=== PATIENT | female | born 1985 | race Caucasian/White ===

== ENCOUNTER 2018-06-09 14:03 | Emergency (ER) | payer OTHER ==
[~2018-06-09] VITALS: Ht 167.6 cm; Wt 77.0 kg
[2018-06-09] MEDS ORDERED: CYCL-331 PO (14:57)
--- NOTE | 2018-06-09 14:57 | PHYS DOC ---
Past History Past Medical History: Other Past Surgical History: Tubal ligation Alcohol Use: None Drug Use: Marijuana Adult General Chief Complaint Chief Complaint: SHOULDER pain HPI HPI 33-year-old female with back pain for the last 4 years comes in with acute on chronic back pain without any recent trauma. She reports multiple x-rays were reportedly normal. She was going to her primary care physician today when she found out that he was out of town but her pain was bad enough that she felt she needed help in the emergency department with her pain. She has a sharp moderate pain that is nonradiating. Similar to the previous 4 years of her pain. No new or changing symptomatology to suggest a different etiology. Review of systems is negative for chest pain shortness of breath recent car accidents. She denies neck pain headache abdominal pain fevers chills hematuria or being . All other review of systems is negative unless otherwise noted in history of present illness. ED course: 33-year-old female with acute on chronic muscular thoracic back pain. On examination she has tenderness to palpation along the trapezius muscle. Nontender cervical thoracic or lumbar spine. No step-offs abrasions lacerations or ecchymosis. No tenderness of the shoulder. No deformities. No pain with passive range of motion of the left shoulder. Normal neurovascular status of the upper extremities. Otherwise the remainder the exam is unremarkable. Intramuscular morphine given here in the emergency room department. Muscle relaxants given upon discharge to follow up with her pcp a few days. The patient has been examined and was not found to have an emergency medical condition. The patient was then discharged home in stable condition to follow up with their primary care physician over the next 2-3 days. They were to return if their symptoms worsened or if they were concerned for any reason. They were also instructed to return to the emergency department if they were unable to get the recommended and appropriate follow-up. [id number] discharge instructions and return precautions were given. Patient's questions were answered to their satisfaction. Patient is comfortable with plan. Allergies Allergies Allergies Coded Allergies Type Severity Reaction Last Updated Verified No Known Drug Allergies 06/09/18 No Physical Exam Physical Exam Constitutional: Well developed, well nourished, no acute distress, non-toxic appearance. [] HENT: Normocephalic, atraumatic, bilateral external ears normal, oropharynx moist, no oral exudates, nose normal. [] Eyes: PERRLA, EOMI, conjunctiva normal, no discharge. [] Neck: Normal range of motion, no tenderness, supple, no stridor. [] Cardiovascular:Heart rate regular rhythm, no murmur [] Lungs & Thorax: Bilateral breath sounds clear to auscultation [] Abdomen: Bowel sounds normal, soft, no tenderness, no masses, no pulsatile masses. [] Skin: Warm, dry, no erythema, no rash. [] Back: see above, no CVA tenderness. [] Extremities: No tenderness, no cyanosis, no clubbing, ROM intact, no edema. [] Neurologic: Alert and oriented X 3, normal motor function, normal sensory function, no focal deficits noted. [] Psychologic: Affect normal, judgement normal, mood normal. [] Current Patient Data Vital Signs Vital Signs Date Time Temp Pulse Resp B/P (MAP) Pulse Ox O2 Delivery O2 Flow Rate FiO2 06/09/18 14:18 98.1 86 18 97 Room Air EKG EKG [] Radiology/Procedures Radiology/Procedures [] Course & Med Decision Making Course & Med Decision Making Pertinent Labs and Imaging studies reviewed. (See chart for details) [] Dragon Disclaimer Dragon Disclaimer This electronic medical record was generated, in whole or in part, using a voice recognition dictation system. Departure Departure: Impression: Primary Impression: Musculoskeletal back pain Disposition: HOME, SELF-CARE Condition: STABLE Referrals: CASPER VALENTIN MD (PCP) Patient Instructions: Back Exercises, Back Injury Prevention, Back Pain, Adult Additional Instructions: Thank you for allowing us to participate in your care today. Return to the emergency department you have any new or worsening symptoms, or if you are concerned for any reason. Return to emergency department if you have any new or concerning symptoms including but not limited to fever, chills, nausea, vomiting, intractable pain, any new rashes, chest pain, shortness of air , uncontrolled bleeding, difficulty breathing, and/or vision loss. Follow up with your primary care physician within 3 days. Call your Primary Doctor tomorrow and inform them of your visit today. If you do not have a primary care provider we are happy to provide you with a list of our primary care providers contact information. This condition should be evaluated by your primary care physician and any recommended consulting services for continued management within 2-3 days after discharge. If at any time, you are having difficulty getting into your primary care doctor or a specialist, return to the emergency department. You may have been prescribed medication or given medication in the emergency department that can change in your level of thinking and ability to operate machinery. Many prescribed medications can cause this. Some commonly prescribed medications include hydrocodone, ativan, and benadryl. Be sure to check with your pharmacist and ask if the medications you've prescribed can affect your level of consciousness. I recommend not operating heavy machinery or driving while on medication such as these. Scripts Cyclobenzaprine Hcl (CYCLOBENZAPRINE HCL) 10 Mg Tablet 1 TAB PO TID, #21 TAB 0 Refills Caution: This medication can cause you to be drowsy. Do not drive or operate heavy machinery on this medication. Prov: REMEDIOS WHITE MD 06/09/18 REMEDIOS WHITE MD Jun 09, 2018 14:57
[2018-06-09] MEDS ORDERED: MORPHINE SULFATE 4 MG/ML DISP.SYRIN. IM ONE (15:15)
[2018-06-09 15:27] VITALS: BP 99/70
== END 2018-06-09 15:30 | disposition home or self-care (01) ==
LOC: ER 14:03
DX: G89.29 Other chronic pain (principal); M54.89 Other dorsalgia; Z98.51 Tubal ligation status
CPT/HCPCS: 96372; 99283; J2270

== ENCOUNTER 2019-03-19 19:15 | Emergency (ER) | payer OTHER ==
[~2019-03-19] VITALS: Ht 167.6 cm; Wt 70.3 kg
[~2019-03-19 19:15] MED LIST: CYCL-331 PO
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
[2019-03-19] MEDS ORDERED: TETANUS AND DIPHTHERIA TOX/PF 0.5 ML VIAL. VAX IM ONE (19:30)
[2019-03-19] MEDS ORDERED: TETRACAINE 0.5% OPHTH SOLUTION 4ML BOTTLE. OU ONE (19:45)
[2019-03-19] MEDS ORDERED: FLUORESCEIN 1MG EYE STRIP. OU ONE (19:45)
[2019-03-19] MEDS ORDERED: KETOROLAC TROMETHAMINE 0.5% OPHTH SOLUTION 3ML BOTTLE. OU ONE (19:45)
[2019-03-19] MEDS ORDERED: ERYTHROMYCIN 0.5% OPHTH OINTMENT 1GM TUBE. OU ONE (19:45)
[2019-03-19] MEDS ORDERED: HYDR-1179 PO (19:53)
[2019-03-19] MEDS ORDERED: DIPHTH,PERTUSS(ACELL),TET TOX 0.5 ML DISP.SYRIN. VAX IM ONE (20:00)
[2019-03-19] MEDS ORDERED: HYDROcodon/IBUPROFEN 7.5/200MG 1 TAB TABLET PO ONE ×2 (20:00→20:15)
[2019-03-19 20:10] VITALS: BP 137/80
[2019-03-19] MEDS ORDERED: CYCLOPENTOLATE 1% OPTH SOLUTION 2ML BOTTLE. OU ONE (20:15)
== END 2019-03-19 20:15 | disposition home or self-care (01) ==
LOC: ER 19:15
DX: H10.9 Unspecified conjunctivitis (principal); H52.12 Myopia, left eye
CPT/HCPCS: 90471; 90715; 99283-25

== ENCOUNTER 2019-03-29 18:48 | Emergency (ER) | payer OTHER ==
[~2019-03-29] VITALS: Ht 165.1 cm; Wt 75.3 kg
[~2019-03-29 18:48] MED LIST changes: +HYDR-1179 PO
--- NOTE | 2019-03-29 19:09 | PHYS DOC ---
Past History Past Medical History: Anxiety, Depression, Other Past Surgical History: Tubal ligation, Other Additional Smoking Information: 11/24 PACK Alcohol Use: None Drug Use: Marijuana Adult General Chief Complaint Chief Complaint: DIFFICULTY SWALLOWING HPI HPI Patient is a 33-year-old female who has difficulty swallowing at the end of the work day since starting a new job 3-4 weeks ago. 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 Symptoms became worse this evening as she made 120 phone calls today. She does not have any difficulty keeping food or fluids down. She reports it is more a difficulty of initiating the swallow process towards the end of the workday. Her mother was recently diagnosed with influenza A, last week. Patient notes that she has a mild sore throat. Denies any fever. Symptoms do get better by the start of the next work day.[] Review of Systems Review of Systems Constitutional: Denies fever or chills [] Eyes: Denies change in visual acuity, redness, or eye pain [] HENT: Denies nasal congestion see history of present illness[] Respiratory: Denies cough or shortness of breath [] Cardiovascular: No chest pain or palpitations[] GI: Denies abdominal pain, nausea, vomiting, bloody stools or diarrhea [] : Denies dysuria or hematuria [] Musculoskeletal: Denies back pain or joint pain [] Integument: Denies rash or skin lesions [] Neurologic: Denies headache, focal weakness or sensory changes [] Endocrine: Denies polyuria or polydipsia [] All other systems were reviewed and found to be within normal limits, except as documented in this note. Family History Family History Denies family history of MS Allergies Allergies Allergies Coded Allergies Type Severity Reaction Last Updated Verified No Known Drug Allergies 06/09/18 No Physical Exam Physical Exam Constitutional: Well developed, well nourished, no acute distress, non-toxic appearance. [] HENT: Normocephalic, atraumatic, bilateral external ears normal, oropharynx moist, no oral exudates, nose normal. [] Eyes: PERRLA, EOMI, conjunctiva normal, no discharge. [] Neck: Normal range of motion, no tenderness, supple, no stridor. Normal thyroid, normal neck/throat movement with the swallowing process.[] Cardiovascular:Heart rate regular rhythm, no murmur [] Lungs & Thorax: Bilateral breath sounds clear to auscultation [] Abdomen: Not examined. [] Skin: Warm, dry, no erythema, no rash. [] Back: No tenderness, no CVA tenderness. [] Extremities: No tenderness, no cyanosis, no clubbing, ROM intact, no edema. [] Neurologic: Alert and oriented X 3, normal motor function, normal sensory function, no focal deficits noted. [] Psychologic: Affect normal, judgement normal, mood normal. [] Current Patient Data Vital Signs Vital Signs Date Time Temp Pulse Resp B/P (MAP) Pulse Ox O2 Delivery O2 Flow Rate FiO2 03/29/19 18:55 97.3 83 20 100 Room Air EKG EKG [] Radiology/Procedures Radiology/Procedures [] Course & Med Decision Making Course & Med Decision Making Pertinent Labs and Imaging studies reviewed. (See chart for details) ED course: Patient arrived, was placed in bed, and tolerated exam well. She was able to swallow water from a water bottle without any difficulty. Medical decision making: This may be related to neurologic issue such as MS. This does not appear to be an acute life-threatening issue since it has been going on for the past 3 weeks. There is no evidence of an esophageal blockage. No evidence of airway compromise. Patient will need further evaluation, possibly neurology and/or MRI evaluation. There is no evidence of an acute infectious etiology at this time.[] Dragon Disclaimer Dragon Disclaimer This electronic medical record was generated, in whole or in part, using a voice recognition dictation system. Departure Departure: Impression: Primary Impression: Difficulty swallowing Disposition: HOME, SELF-CARE Condition: IMPROVED Referrals: CASPER VALENTIN MD (PCP) Follow-up with your doctor in 2 days Patient Instructions: Dysphagia Additional Instructions: Follow-up with your regular doctor in 2 days. Drink plenty of fluids during your work shifts. Return to the ER if worsening difficulty swallowing or any other concerns. Problem Qualifiers Primary Impression: Difficulty swallowing Dysphagia type: unspecified Qualified Codes: R13.10 - Dysphagia, unspecified CHANCE SEGUNDO DO March 29, 2019 19:09
[2019-03-29 19:46] LABS: INFLUENZA A PATIENT NEGATIVE (NEGATIVE); INFLUENZA B PATIENT NEGATIVE (NEGATIVE)
[2019-03-29] MEDS ORDERED: KETOROLAC 15 MG/ML VIAL. IM ONE (20:15)
[2019-03-29 20:22] VITALS: BP 114/81
== END 2019-03-29 20:23 | disposition home or self-care (01) ==
LOC: ER 18:48
DX: R13.10 Dysphagia, unspecified (principal); J02.9 Acute pharyngitis, unspecified; F41.9 Anxiety disorder, unspecified; F32.9 Major depressive disorder, single episode, unspecified; F17.200 Nicotine dependence, unspecified, uncomplicated
CPT/HCPCS: 87070; 87804; 87880; 96372; 99284; J1885

== ENCOUNTER 2019-05-21 18:56 | Emergency (ER) | payer OTHER ==
[~2019-05-21] VITALS: Ht 165.1 cm; Wt 73.3 kg
[2019-05-21 19:00] VITALS: BP 150/89
[2019-05-21] MEDS ORDERED: PHENAZOPYRIDINE 200 MG TABLET. PO ONE (19:15)
[2019-05-21] MEDS ORDERED: IBUPROFEN 600 MG TABLET. PO ONE ×2 (19:15→19:17)
[2019-05-21] MEDS ORDERED: PHENAZOPYRIDINE 200 MG TABLET. ONE (19:17)
[2019-05-21] MEDS ORDERED: CEPH-264 PO (19:22)
[2019-05-21] MEDS ORDERED: PHEN-318 PO (19:22)
--- NOTE | 2019-05-21 19:23 | PHYS DOC ---
Past History Past Medical History: Anxiety, Depression, Other Past Surgical History: Tubal ligation, Other Smoking: Cigarettes Alcohol Use: None Drug Use: Marijuana Adult General Chief Complaint Chief Complaint: PAIN ON URINATION HPI HPI Patient is a 33-year-old female presents with dysuria and frequency that started approximately an hour prior to arrival. This is like her previous urinary tract infections. She has taken no medication to help with the discomfort. Reports the discomfort as a burning sensation with urination. No radiation to the back or flanks. No fever. No nausea or vomiting. No vaginal bleeding or discharge. Nothing makes the symptoms better or worse.[] Review of Systems Review of Systems Constitutional: Denies fever or chills [] Eyes: Denies change in visual acuity, redness, or eye pain [] HENT: Denies nasal congestion or sore throat [] Respiratory: Denies cough or shortness of breath [] Cardiovascular: No chest pain or palpitations[] GI: Denies abdominal pain, nausea, vomiting, bloody stools or diarrhea [] : See history of present illness[] Musculoskeletal: Denies back pain or joint pain [] Integument: Denies rash or skin lesions [] Neurologic: Denies headache, focal weakness or sensory changes [] Endocrine: Denies polyuria or polydipsia [] All other systems were reviewed and found to be within normal limits, except as documented in this note. Allergies Allergies Allergies Coded Allergies Type Severity Reaction Last Updated Verified No Known Drug Allergies 06/09/18 No Physical Exam Physical Exam Constitutional: Well developed, well nourished, no acute distress, non-toxic appearance. [] HENT: Normocephalic, atraumatic, bilateral external ears normal, oropharynx moist, no oral exudates, nose normal. [] Eyes: PERRLA, EOMI, conjunctiva normal, no discharge. [] Neck: Normal range of motion, no tenderness, supple, no stridor. [] Cardiovascular:Heart rate regular rhythm, no murmur [] Lungs & Thorax: Bilateral breath sounds clear to auscultation [] Abdomen: Bowel sounds normal, soft, no tenderness, no masses, no pulsatile masses. [] Skin: Warm, dry, no erythema, no rash. [] Back: No tenderness, no CVA tenderness. [] Extremities: No tenderness, no cyanosis, no clubbing, ROM intact, no edema. [] Neurologic: Alert and oriented X 3, normal motor function, normal sensory function, no focal deficits noted. [] Psychologic: Affect normal, judgement normal, mood normal. [] EKG EKG [] Radiology/Procedures Radiology/Procedures [] Course & Med Decision Making Course & Med Decision Making Pertinent Labs and Imaging studies reviewed. (See chart for details) Medical decision making: Patient appears to have a urinary tract infection given the moderate leukocyte esterase in her urine and previous symptomatology. Have started treatment with pain medication in the emergency department. Will start her on antibiotics. She has not been on any recent antibiotic therapy. There is no evidence of pyelonephritis nor systemic toxicity. No evidence of appendicitis given no right lower quadrant tenderness.[] Dragon Disclaimer Dragon Disclaimer This electronic medical record was generated, in whole or in part, using a voice recognition dictation system. Departure Departure: Impression: Primary Impression: Urinary tract infection Disposition: HOME, SELF-CARE Condition: IMPROVED Referrals: CASPER VALENTIN MD (PCP) Follow-up in 2 days Patient Instructions: Urinary Tract Infection Additional Instructions: Drink plenty of fluids. Take the medication as prescribed. Follow-up with your regular doctor in 2 days. Return to the ER if worsening discomfort, fever of more than 101, or any other concerns. Scripts Phenazopyridine Hcl (PYRIDIUM) 200 Mg Tablet 200 MG PO TID for dysuria for 2 Days, #6 TAB Prov: CHANCE SEGUNDO DO 05/21/19 Cephalexin (KEFLEX) 500 Mg Capsule 500 MG PO TID for UTI for 10 Days, #30 CAP Prov: CHANCE SEGUNDO DO 05/21/19 Problem Qualifiers Primary Impression: Urinary tract infection Urinary tract infection type: site unspecified Hematuria presence: with hematuria Qualified Codes: N39.0 - Urinary tract infection, site not specified; R31.9 - Hematuria, unspecified CHANCE SEGUNDO DO May 21, 2019 19:23
== END 2019-05-21 19:30 | disposition home or self-care (01) ==
LOC: ER 18:56
DX: N39.0 Urinary tract infection, site not specified (principal); R31.9 Hematuria, unspecified; F41.9 Anxiety disorder, unspecified; F32.9 Major depressive disorder, single episode, unspecified; F17.210 Nicotine dependence, cigarettes, uncomplicated; Z87.440 Personal history of urinary (tract) infections; Z98.51 Tubal ligation status
CPT/HCPCS: 81025; 99283

== ENCOUNTER → 2019-06-21 | Outpatient (CLI) | payer OTHER ==
[~2019-06-21] MED LIST changes: +CEPH-264 PO; +PHEN-318 PO
--- NOTE | 2019-06-21 21:10 | RAD ---
Exam: Cervical spine 3 views lumbar spine 2 views INDICATION: Neck and lower back pain TECHNIQUE: Frontal, lateral and odontoid views of the cervical spine. Frontal and lateral views of the lumbar spine with spot magnification view of the lumbosacral junction. Comparisons: None FINDINGS: Cervical spine: Straightening of the cervical spine which may positional. Vertebral body heights are well-maintained. No significant spondylotic change identified in the cervical spine. Paravertebral soft tissues are unremarkable. Lumbar spine: Mild straightening of the lumbar lordosis. Vertebral body heights are well-maintained. Mild bilateral facet arthropathy greatest at L4-L5 and L5-S1. Visualized paraspinal soft tissues are unremarkable. Tubeligation clips noted. IMPRESSION: 1. Straightening of the cervical spine which may be positional. No significant spondylotic change. 2. Mild spondylotic changes in the lower lumbar spine. Electronically signed by: Jimbo Booth MD (06/21/2019 9:06 PM) [facility]
== END | disposition home or self-care (01) ==
LOC: RAD 20:04
PROVIDERS: ATTEND Family Medicine
DX: M47.816 Spondylosis without myelopathy or radiculopathy, lumbar region (principal); M40.46 Postural lordosis, lumbar region; M12.88 Other specific arthropathies, not elsewhere classified, other specified site
CPT/HCPCS: 72040; 72100

== ENCOUNTER → 2019-06-29 | Outpatient (CLI) | payer OTHER ==
--- NOTE | 2019-06-29 15:42 | RAD ---
EXAM: AP pelvis, AP and lateral views of the right hip DATE: 06/29/2019 12:00 AM INDICATION: Chronic right hip pain COMPARISON: No Prior FINDINGS/ IMPRESSION: No evidence of acute fracture or dislocation. Joint spaces are preserved without significant degenerative/proliferative change. Sclerotic focus within the left pelvis likely bone island. Clips are seen within the pelvis. Electronically signed by: Robert Pineda MD (06/29/2019 3:39 PM) [id number]
== END | disposition home or self-care (01) ==
LOC: DXRAD 15:23
PROVIDERS: ATTEND Family Medicine
DX: M25.551 Pain in right hip (principal); G89.29 Other chronic pain
CPT/HCPCS: 73502

== ENCOUNTER 2021-02-26 10:05 | Emergency (ER) | payer OTHER ==
[~2021-02-26] VITALS: Ht 165.1 cm; Wt 73.3 kg
[2021-02-26 10:16] VITALS: BP 103/66
--- NOTE | 2021-02-26 10:25 | PHYS DOC ---
Past History Past Medical History: Anxiety, Depression, UTI, Other Past Surgical History: Tubal ligation, Other Smoking: Cigarettes Alcohol Use: None Drug Use: Marijuana Adult General Chief Complaint Chief Complaint: FINGER INJURY HPI HPI Patient is a 35-year-old female presenting for left index finger problem. Onset was approximately 3 to 4 days ago, had artificial acrylic nails placed and subsequently removed and developed a cuticle infection. Cuticle infection is on knee lateral portion of nailbed matrix with increased swelling pain and fluctuant at area distal to DIP. She has had no fever, no changes in motor or sensory function, no neurologic deficits but admits "I can feel it pulsating". Patient attempted to incise and drain area without significant relief with further development of green pus material on lateral bed of matrix prompting her to come in for evaluation. She has no history of MRSA infection Review of Systems Review of Systems Fourteen body systems of review of systems have been reviewed. See HPI for pertinent positives and negative responses, other gross all other systems are negative, non-pertinent or non-contributory Allergies Allergies Allergies Coded Allergies Type Severity Reaction Last Updated Verified No Known Drug Allergies 06/09/18 No Physical Exam Physical Exam Constitutional: Well developed, well nourished, no acute distress, non-toxic appearance. HENT: Normocephalic, atraumatic, bilateral external ears normal, oropharynx moist, no oral exudates, nose normal. Eyes: PERRLA, EOMI, conjunctiva normal, no discharge. Neck: Normal range of motion, no tenderness, supple, no stridor. Cardiovascular: Heart rate regular per monitor Lungs & Thorax: No respiratory distress or accessory muscle use, bilateral chest rise Abdomen: Abdomen soft, non-tender, bowel sounds present in all quadrants, no guarding or rebound, nonacute abdomen. Skin: Warm, dry, no erythema, no rash. Back: No tenderness, no CVA tenderness. Extremities: No cyanosis, no clubbing, ROM intact, edema and pain to distal tip of left index finger with small yellow/green-colored pus present on lateral nailbed matrix, radial pulses intact bilaterally, cap refill less than 3 seconds Neurologic: Alert and oriented X 3, normal motor & sensory function, no focal deficits noted. Psychologic: Anxious affect and mood Current Patient Data Vital Signs Vital Signs Date Time Temp Pulse Resp B/P (MAP) Pulse Ox O2 Delivery O2 Flow Rate FiO2 02/26/21 10:16 97.9 105 16 103/66 (78) 98 Room Air EKG EKG [] Radiology/Procedures Radiology/Procedures [] Heart Score C/O Chest Pain: No HEART Score for Chest Pain: HEART Score for Chest Pain Response (Comments) Value ECG Normal 0 Age < 45 0 Risk Factors No Risk Factors 0 Total 0 Risk Factors: Risk Factors: DM, Current or recent (<one month) smoker, HTN, HLP, family history of CAD, obesity. Risk Scores: Risk Factors: DM, Current or recent (<one month) smoker, HTN, HLP, family history of CAD, obesity. Course & Med Decision Making Course & Med Decision Making Hemodynamically stable, afebrile patient with HPI and physical examination consistent with cuticle infection of left distal index finger Joint decision was made to pursue incision and drainage, this was performed while in ER without any observed nor reported complications with significant amount of pus and serosanguineous fluid expelled. 500 mg Keflex started as patient has no history of MRSA Subsequent prescription for Keflex given prior to ER departure. Patient has PCP, was advised to follow-up within upcoming 3 to 5 days for repeat evaluation in outpatient setting to ensure continued symptomatic resolution Strict return precautions discussed with good understanding by patient, all questions and concerns addressed prior to ER departure Dragon Disclaimer Dragon Disclaimer This electronic medical record was generated, in whole or in part, using a voice recognition dictation system. Incision and Drainage Incision and Drainage : Site: Distal aspect of left lateral index finger Blade Size: 11 I & D Procedure: sterile dressing applied Progress Verbal consent obtained after risks and benefits reviewed. A total of 3 cc 1% lidocaine without epinephrine was utilized to perform a digital block with 1.5 mils 1% lidocaine administered on each side of left index finger. An 11 blade was used to make x1 incision to lateral portion of left index finger near base of focal pustular collection without involvement/interference of nailbed matrix. Significant pustular material and subsequent serosanguineous fluid was relieved and expressed out. Patient tolerated procedure well without any observed nor reported complications Departure Departure: Impression: Primary Impression: Infected cuticle Disposition: 01 DC HOME SELF CARE/HOMELESS Condition: STABLE Referrals: CASPER VALENTIN MD (PCP) Patient Instructions: Paronychia Additional Instructions: As discussed prior to your departure, you were diagnosed with an infection of the lateral portion of your left index finger. Joint decision was made to incise and drain this with significant amount of pus expelled. You will require antibiotics for this, you were given x1 dose of Keflex while in ER and a subsequent prescription was written for you. Please fill these and take as described to its entirety. Please ensure you continue supportive care practices discussed and also follow instructions attached to this packet of information. Continue warm soaks daily. It is vital you follow-up with your primary care physician for repeat evaluation. If any concerning signs or symptoms present prior to outpatient follow-up please do not hesitate to come back for repeat evaluation. It was a pleasure to take care of you and I wish you the best going Scripts Cephalexin (CEPHALEXIN) 500 Mg Tablet 2 TAB PO TID for INFECTION for 7 Days, #42 TAB Prov: JERRICA LARSON DO 02/26/21 JERRICA LARSON DO Feb 26, 2021 10:25
[2021-02-26] MEDS ORDERED: LIDOCAINE 1% Multi-Dose 20 ML VIAL. ONE (10:32)
[2021-02-26] MEDS ORDERED: CEPHALEXIN 250 MG CAPSULE PO ONE (11:00)
[2021-02-26] MEDS ORDERED: CEPH500T PO (11:00)
== END 2021-02-26 11:07 | disposition home or self-care (01) ==
LOC: ER 10:05
DX: L03.012 Cellulitis of left finger (principal); F17.210 Nicotine dependence, cigarettes, uncomplicated
CPT/HCPCS: 26010; 99283

== ENCOUNTER 2021-04-04 22:29 | Emergency (ER) | payer OTHER ==
[~2021-04-04] VITALS: Ht 165.1 cm; Wt 71.2 kg
[~2021-04-04 22:29] MED LIST changes: +CEPH500T PO
[2021-04-04 22:40] VITALS: BP 144/106
[2021-04-04] MEDS ORDERED: ONDANSETRON PF 4 MG/2 ML VIAL. IVP ONE (23:15)
[2021-04-04] MEDS ORDERED: IV RINGERS SOLUTION,LACTATED 1,000 ML IV ONE (23:15)
[2021-04-04 23:25] LABS: CALCIUM 8.9 mg/dL (8.5-10.1); CREATININE 0.9 mg/dL (0.6-1.0); GFR 70.5; HEMATOCRIT 40.5 % (36.0-47.0); HEMOGLOBIN 13.9 g/dL (12.0-15.5); POTASSIUM 3.1 mmol/L (3.5-5.1); RED BLOOD COUNT 4.23 x10^6/uL (3.50-5.40); RED CELL DISTRIBUTION WIDTH 12.7 % (11.5-14.5); WHITE BLOOD COUNT 12.7 x10^3/uL (4.0-11.0)
[2021-04-04 23:30] LABS: ALBUMIN 4.4 g/dL (3.4-5.0); ALBUMIN/GLOBULIN RATIO 1.4 (1.0-1.7); TOTAL BILIRUBIN 0.4 mg/dL (0.2-1.0); TOTAL PROTEIN 7.6 g/dL (6.4-8.2)
[2021-04-04 23:43] LABS: BILIRUBIN,URINE NEG (NEG); CLARITY,URINE CLEAR; COLOR,URINE YELLOW; GLUCOSE,URINE NEG (NEG)
[2021-04-04 23:44] LABS: AMORPHOUS SEDIMENT,UR PRESENT /HPF; BACTERIA,URINE FEW /HPF (0-FEW); BARBITURATES NEG (NEG); BENZODIAZEPINES POS (NEG); CANNABINOIDS POS (NEG); COCAINE POS (NEG); METHADONE NEG (NEG); NITRITE,URINE NEG (NEG); OPIATES NEG (NEG); PHENCYCLIDINE NEG (NEG); RBC,URINE 0 /HPF (0-2); SQUAMOUS EPITHELIAL CELL,UR FEW /LPF; UROBILINOGEN,URINE 0.2 mg/dL (0.2 mg/dL); WBC,URINE 0 /HPF (0-4)
[2021-04-04 23:55] LABS: AMPHETAMINE/METHAMPHETAMINE NEG (NEG)
--- NOTE | 2021-04-05 00:11 | PHYS DOC ---
Past History Past Medical History: No Pertinent History Past Surgical History: Other Smoking: Cigarettes Alcohol Use: None Drug Use: Marijuana Adult General Chief Complaint Chief Complaint: OVERDOSE HPI HPI Patient is a 35-year-old female who presents with family after ingesting an unknown pill. Patient and family state that she was given a pill that was told that was Percocet but they believe it was a Percocet laced with fentanyl. P atient states that she also took some Xanax as well as cocaine earlier. Daughter brought her in because she was acting funny and was worried that she was going to overdose. Patient denies headache, changes in vision, numbness/weakness/tingling, chest pain, shortness of breath, abdominal pain, dysuria, hematuria, nausea, vomiting. Both patient and daughter deny any syncope or unresponsiveness. Denies any other drugs outside of the pill given to her which was unknown, cocaine, marijuana and Xanax. Review of Systems Review of Systems Review of systems otherwise unremarkable except noted in HPI Current Medications Current Medications Current Medications Medications (Trade) Dose Ordered Sig/Jenny Start Time Stop Time Status Last Admin Dose Admin Lactated Ringer's 1,000 ml @ 1,000 mls/hr 1X ONCE 04/04/21 23:15 04/05/21 00:14 04/04/21 23:15 1,000 MLS/HR Ondansetron HCl (Zofran) 4 mg 1X ONCE 04/04/21 23:15 04/04/21 23:18 DC 04/04/21 23:15 4 MG Allergies Allergies Allergies Coded Allergies Type Severity Reaction Last Updated Verified No Known Drug Allergies 06/09/18 No Physical Exam Physical Exam Constitutional: Well developed, well nourished, no acute distress, non-toxic appearance. [] HENT: Normocephalic, atraumatic, bilateral external ears normal, oropharynx m oist, no oral exudates, nose normal. [] Eyes: PERRLA, EOMI, conjunctiva normal, no discharge. [] Neck: Normal range of motion, no tenderness, supple, no stridor. [] Cardiovascular:Heart rate regular rhythm, no murmur [] Lungs & Thorax: Bilateral breath sounds clear to auscultation [] Abdomen: soft, no tenderness, no masses, no pulsatile masses. [] Skin: Warm, dry, no erythema, no rash. [] Back: No tenderness, no CVA tenderness. [] Extremities: No tenderness, no cyanosis, no clubbing, ROM intact, no edema. [] Neurologic: Alert and oriented X 3, no focal deficits noted. [] Psychologic: Affect normal, judgement normal, mood normal. [] Current Patient Data Vital Signs Vital Signs Date Time Temp Pulse Resp B/P (MAP) Pulse Ox O2 Delivery O2 Flow Rate FiO2 04/04/21 22:40 98.2 95 16 144/106 (119) 95 Room Air Lab Results Laboratory Tests Test 04/04/21 22:45 04/04/21 22:48 White Blood Count 12.7 x10^3/uL (4.0-11.0) H Red Blood Count 4.23 x10^6/uL (3.50-5.40) Hemoglobin 13.9 g/dL (12.0-15.5) Hematocrit 40.5 % (36.0-47.0) Mean Corpuscular Volume 96 fL (79-100) Mean Corpuscular Hemoglobin 33 pg (25-35) Mean Corpuscular Hemoglobin Concent 34 g/dL (31-37) Red Cell Distribution Width 12.7 % (11.5-14.5) Platelet Count 256 x10^3/uL (140-400) Urine Collection Type U cath Urine Color Yellow Urine Clarity Clear Urine pH 5.5 Urine Specific Chunky 1.025 Urine Protein Neg (NEG-TRACE) Urine Glucose (UA) Neg mg/dL (NEG) Urine Ketones (Stick) Trace mg/dL (NEG) Urine Blood Neg (NEG) Urine Nitrite Neg (NEG) Urine Bilirubin Neg (NEG) Urine Urobilinogen Dipstick 0.2 mg/dL (0.2 mg/dL) Urine Leukocyte Esterase Neg (NEG) Urine RBC 0 /HPF (0-2) Urine WBC 0 /HPF (0-4) Urine Squamous Epithelial Cells Few /LPF Urine Transitional Epithelial Cells Occ /LPF Urine Renal Epithelial Cells Occ /LPF Urine Amorphous Sediment Present /HPF Urine Bacteria Few /HPF (0-FEW) Urine Mucus Slight /LPF Sodium Level 139 mmol/L (136-145) Potassium Level 3.1 mmol/L (3.5-5.1) L Chloride Level 101 mmol/L (98-107) Carbon Dioxide Level 27 mmol/L (21-32) Anion Gap 11 (6-14) Blood Urea Nitrogen 14 mg/dL (7-20) Creatinine 0.9 mg/dL (0.6-1.0) Estimated GFR (Cockcroft-Gault) 70.5 BUN/Creatinine Ratio 16 (6-20) Glucose Level 168 mg/dL (70-99) H Calcium Level 8.9 mg/dL (8.5-10.1) Total Bilirubin 0.4 mg/dL (0.2-1.0) Aspartate Amino Transferase (AST) 17 U/L (15-37) Alanine Aminotransferase (ALT) 21 U/L (14-59) Alkaline Phosphatase 63 U/L (46-116) Total Protein 7.6 g/dL (6.4-8.2) Albumin 4.4 g/dL (3.4-5.0) Albumin/Globulin Ratio 1.4 (1.0-1.7) Urine Opiates Screen Neg (NEG) Urine Methadone Screen Neg (NEG) Urine Barbiturates Neg (NEG) Urine Phencyclidine Screen Neg (NEG) Urine Amphetamine/Methamphetamine Neg (NEG) Urine Benzodiazepines Screen Pos (NEG) Urine Cocaine Screen Pos (NEG) Urine Cannabinoids Screen Pos (NEG) Urine Ethyl Alcohol Neg (NEG) Glucose (Fingerstick) 180 mg/dL (70-99) H EKG EKG [] Radiology/Procedures Radiology/Procedures [] Heart Score C/O Chest Pain: No Risk Factors: Risk Factors: DM, Current or recent (<one month) smoker, HTN, HLP, family history of CAD, obesity. Risk Scores: Risk Factors: DM, Current or recent (<one month) smoker, HTN, HLP, family history of CAD, obesity. Course & Med Decision Making Course & Med Decision Making Patient is a 35-year-old female who presents intoxicated after taking a pill that she was told was a Percocet but feels it was a Percocet laced with fentanyl. Patient also endorses marijuana, cocaine and Xanax use. Vital signs not concerning. Physical exam noted above. GCS of 15. Patient awake, alert and able to take p.o. without issue. Laboratory analysis not concerning. Urinalysis with some bacteria but patient denies any urinary symptoms. Toxicology matches patient's description. Patient able to ambulate without issue. Both patient, daughter and son-in-law felt safe to discharge home with patient. Advised to follow-up with primary care physician as soon as they can to update on ED visit. Advised to cease taking all medications that are not prescribed by a physician. Advised to come back to the ED with new or concerning symptoms. Family grateful, verbalized understanding and agreed with plan of discharge. Dragon Disclaimer Dragon Disclaimer This electronic medical record was generated, in whole or in part, using a voice recognition dictation system. Departure Departure: Disposition: 01 HOME / SELF CARE / HOMELESS Condition: GOOD Referrals: CASPER VALENTIN MD (PCP) Patient Instructions: Narcotic Overdose, Substance Abuse-Brief Additional Instructions: Please read all the attached information carefully. Please cease using any medicines and/or substances that are not prescribed to you by your primary care physician. Please come back to the emergency department immediately with new or concerning symptoms as discussed. RICHMOND BALL MD April 05, 2021 00:11
== END 2021-04-05 00:29 | disposition home or self-care (01) ==
LOC: ER 22:29
DX: T42.4X1A Poisoning by benzodiazepines, accidental (unintentional), initial encounter (principal); F12.10 Cannabis abuse, uncomplicated; F17.210 Nicotine dependence, cigarettes, uncomplicated; Y92.89 Other specified places as the place of occurrence of the external cause
CPT/HCPCS: 36415; 80053; 80307; 81001; 82947; 85027; 96361; 96374; 99283; J2405; J7120

== ENCOUNTER 2021-04-05 09:50 | Emergency (ER) | payer OTHER ==
[~2021-04-05] VITALS: Ht 165.1 cm; Wt 71.2 kg
[2021-04-05] MEDS ORDERED: KETOROLAC 15 MG/ML VIAL. IVP ONE (10:15)
[2021-04-05] MEDS ORDERED: ONDANSETRON PF 4 MG/2 ML VIAL. IVP ONE (10:15)
[2021-04-05] MEDS ORDERED: IV NORMAL SALINE 1,000ML 1,000 ML IV ONE (10:15)
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
[2021-04-05 10:26] LABS: BASO # 0.1 x10^3/uL (0.0-0.2); BASO % 1 % (0-3); EOS # 0.1 x10^3/uL (0.0-0.7); EOS % 1 % (0-3); HEMATOCRIT 41.8 % (36.0-47.0); HEMOGLOBIN 14.2 g/dL (12.0-15.5); LYMPH # 1.9 x10^3/uL (1.0-4.8); LYMPH % 22 % (24-48); MEAN CORPUSCULAR HEMOGLOBIN 33 pg (25-35); MEAN CORPUSCULAR HGB CONC 34 g/dL (31-37); MEAN CORPUSCULAR VOLUME 98 fL (79-100); MONO # 0.5 x10^3/uL (0.0-1.1); MONO % 6 % (0-9); NEUT # 6.2 x10^3uL (1.8-7.7); NEUT % 70 % (31-73); PLATELET COUNT 192 x10^3/uL (140-400); RED BLOOD COUNT 4.28 x10^6/uL (3.50-5.40); RED CELL DISTRIBUTION WIDTH 12.5 % (11.5-14.5); WHITE BLOOD COUNT 8.8 x10^3/uL (4.0-11.0)
[2021-04-05] MEDS ORDERED: NALOXONE 0.4 MG/ML VIAL. IV ONE (10:30)
[2021-04-05 10:41] LABS: CALCIUM 8.8 mg/dL (8.5-10.1); CREATININE 0.9 mg/dL (0.6-1.0); GFR 70.5
[2021-04-05 10:47] LABS: ACETAMIN < 2.0 mcg/mL (10-30); ALBUMIN/GLOBULIN RATIO 1.2 (1.0-1.7); SALIC < 2.8 mg/dL (2.8-20.0); TOTAL BILIRUBIN 0.5 mg/dL (0.2-1.0); TOTAL PROTEIN 7.4 g/dL (6.4-8.2)
[2021-04-05 10:56] LABS: POTASSIUM 4.7 mmol/L (3.5-5.1)
[2021-04-05 12:45] VITALS: BP 118/83
[2021-04-05 12:59] LABS: BARBITURATES NEG (NEG); BENZODIAZEPINES POS (NEG); CANNABINOIDS POS (NEG); COCAINE POS (NEG); METHADONE NEG (NEG); OPIATES NEG (NEG); PHENCYCLIDINE NEG (NEG)
[2021-04-05 13:10] LABS: AMPHETAMINE/METHAMPHETAMINE NEG (NEG)
[2021-04-05 13:23] LABS: BILIRUBIN,URINE NEG (NEG); CLARITY,URINE HAZY; COLOR,URINE YELLOW; GLUCOSE,URINE 100 mg/dL (NEG)
[2021-04-05 13:24] LABS: AMORPHOUS SEDIMENT,UR PRESENT /HPF; BACTERIA,URINE 0 /HPF (0-FEW); NITRITE,URINE NEG (NEG); SQUAMOUS EPITHELIAL CELL,UR FEW /LPF; UROBILINOGEN,URINE 0.2 mg/dL (0.2 mg/dL); WBC,URINE RARE /HPF (0-4)
== END 2021-04-05 12:45 | disposition home or self-care (01) ==
LOC: ER 09:50
DX: T40.0X1A Poisoning by opium, accidental (unintentional), initial encounter (principal); R41.0 Disorientation, unspecified; F41.9 Anxiety disorder, unspecified; F32.9 Major depressive disorder, single episode, unspecified; Z98.51 Tubal ligation status; Y92.89 Other specified places as the place of occurrence of the external cause
CPT/HCPCS: 36415; 80053; 80307; 80329; 81001; 81025; 82803; 84484; 85025; 96361; 96374; 96375; 99285; J1885; J2405; J7030; G0480